=== PATIENT | male | born 2000 ===

== ENCOUNTER 2018-11-18 20:39 | Emergency (ER) | payer OTHER ==
[2018-11-18 21:04] VITALS: BP 165/91
--- NOTE | 2018-11-18 21:29 | UC ---
Skin Complaint HPI - HPI Summary HPI Summary: 18-year-old male 18-year-old male comes in with a chief complaint of finding lice in his pubic area. He found them tonight do itch. Has not noticed any on the scalp. Feels well otherwise. Is not sure where he got. - History of Current Complaint Chief Complaint: [facility] Time Seen by Provider: 11/18/18 21:15 Stated Complaint: PERSONAL Pain Intensity: 0 - Allergy/Home Medications Allergies/Adverse Reactions: Allergies Allergy/AdvReac Type Severity Reaction Status Date / Time No Known Allergies Allergy Verified 11/18/18 21:04 Home Medications: Home Medications Sertraline HCl [Zoloft] 100 mg PO DAILY WITH MEAL 11/18/18 [History Confirmed ] PMH/Surg Hx/FS Hx/Imm Hx Previously Healthy: Yes - Surgical History Surgical History: None - Family History Known Family History: Positive: Non-Contributory - Social History Alcohol Use: Weekly Substance Use Type: None Smoking Status (MU): Current Some Day Smoker Review of Systems All Other Systems Reviewed And Are Negative: Yes Constitutional: Positive: Negative Skin: Positive: Other - see hpi Eyes: Positive: Negative ENT: Positive: Negative Respiratory: Positive: Negative Cardiovascular: Positive: Negative Gastrointestinal: Positive: Negative Motor: Positive: Negative Neurovascular: Positive: Negative Musculoskeletal: Positive: Negative Neurological: Positive: Negative Psychological: Positive: Negative Is Patient Immunocompromised?: No Physical Exam Triage Information Reviewed: Yes Appearance: Well-Appearing, No Pain Distress, Well-Nourished Vital Signs: Initial Vital Signs Temp 99.3 F 11/18/18 20:58 Pulse 91 11/18/18 20:58 Resp 18 11/18/18 20:58 BP 165/91 11/18/18 20:58 Pulse Ox 98 11/18/18 20:58 Vital Signs Reviewed: Yes Eye Exam: Normal Eyes: Positive: Conjunctiva Clear ENT: Positive: Other - No lice seen on scalp Neck exam: Normal Neck: Positive: Supple Respiratory: Positive: No respiratory distress Male Genital Exam: Positive: Other - Lice on pubic hair Musculoskeletal Exam: Normal Musculoskeletal: Positive: Strength Intact, ROM Intact Neurological Exam: Normal Neurological: Positive: Alert, Muscle Tone Normal Psychological Exam: Normal Psychological: Positive: Age Appropriate Behavior Skin Exam: Normal Course/Dx - Diagnoses Provider Diagnosis: Pubic lice Discharge - Sign-Out/Discharge Documenting (check all that apply): Patient Departure All imaging exams completed and their final reports reviewed: No Studies - Discharge Plan Condition: Stable Disposition: HOME Prescriptions: Permethrin 1% LOTION* [Nix 1% LOTION*] 1 applic TOPICAL SEE INSTRUCTIONS #1 btl Patient Education Materials: Pubic Lice (ED) Referrals: [facility] @ [Outside] Additional Instructions: FOLLOW UP WITH YOUR DOCTOR IF NOT COMPLETELY IMPROVED. GET RECHECKED SOONER FOR ANY WORSENING OF YOUR CONDITION OR QUESTIONS OR CONCERNS. - Billing Disposition and Condition Condition: STABLE Disposition: Home
== END 2018-11-18 22:00 | disposition home or self-care (01) ==
LOC: UCEAST 20:39
DX: B85.3 Phthiriasis (principal); F17.200 Nicotine dependence, unspecified, uncomplicated
CPT/HCPCS: 99202; G0463